=== PATIENT | male | born 2000 | race Caucasian/White ===

== ENCOUNTER 2022-10-21 05:19 | Emergency (ER) | payer BC ==
[2022-10-21] MEDS ORDERED: Ibuprofen 200 MG TAB ONE (06:27)
== END 2022-10-21 06:51 | disposition home or self-care (01) ==
LOC: CSHERS 05:19
DX: S29.011A Strain of muscle and tendon of front wall of thorax, initial encounter (principal); U07.1 COVID-19; X58.XXXA Exposure to other specified factors, initial encounter
CPT/HCPCS: 71045; 93005

== ENCOUNTER 2024-04-26 21:23 | Emergency (ER) | payer BC | END 2024-04-26 22:36 | disposition home or self-care (01) | LOC: CSHERS 21:23 | DX: J11.1 Influenza due to unidentified influenza virus with other respiratory manifestations (principal) | CPT/HCPCS: 71046 ==